=== PATIENT | female | born 1980 | race African-American/Black ===

== ENCOUNTER 2020-06-22 23:22 | Emergency (ER) | payer BC ==
[~2020-06-22] VITALS: Ht 162.6 cm; Wt 73.9 kg
[2020-06-22 23:24] VITALS: BP 86/47
[2020-06-22] MEDS ORDERED: ZYRTEC10 M5 PO (23:45)
[2020-06-22] MEDS ORDERED: PROTONIX40 M2 PO (23:45)
[2020-06-23] MEDS ORDERED: NORCO 10-325 T1 EACH PO (01:20)
[2020-06-23] MEDS ORDERED: CEPHALEXIN500 MG PO (01:21)
[2020-06-23] MEDS ORDERED: ZOFRAN ODT4 MG PO (01:21)
== END 2020-06-23 01:34 | disposition home or self-care (01) ==
LOC: ER 23:22
DX: S91.201A Unspecified open wound of right great toe with damage to nail, initial encounter (principal); Z88.5 Allergy status to narcotic agent; Z79.899 Other long term (current) drug therapy; W22.8XXA Striking against or struck by other objects, initial encounter; Y93.89 Activity, other specified; Y92.89 Other specified places as the place of occurrence of the external cause; Y99.9 Unspecified external cause status